=== PATIENT | male | born 1955 | race Caucasian/White ===

== ENCOUNTER 2022-05-12 09:14 | Outpatient (CLI) | payer BC, SELFPAY ==
[2022-05-12 14:39] LABS: Cholesterol* 166 mg/dL (90-199)
[2022-05-12 14:40] LABS: HDL Cholesterol* 45 mg/dL (>=40); LDL Cholesterol Calculated 89 mg/dL (<100); Triglycerides* 159 mg/dL (40-149)
[2022-05-12 14:48] LABS: Vitamin D 25 Hydroxy* 48 ng/mL (30-80)
== END 2022-05-12 09:15 | disposition home or self-care (01) ==
PROVIDERS: PCP Family Medicine; Visit Provider Family Medicine
DX: Z00.00 Encounter for general adult medical examination without abnormal findings (principal); E78.5 Hyperlipidemia, unspecified; R73.03 Prediabetes; E66.9 Obesity, unspecified
CPT/HCPCS: 80061; 82306

== ENCOUNTER 2022-06-29 15:36 | Outpatient (CLI) | payer BC, SELFPAY ==
--- NOTE | 2022-06-29 16:00 | CRLHL7_ITS ---
For Patients: As a result of the Century Cures Act, medical imaging exams and procedure reports are released immediately into your electronic medical record. You may view this report before your referring provider. If you have questions, please contact your health care provider. CLINICAL HISTORY: HEMATURIA, PASSING CLOTS COMPARISON: none TECHNIQUE: Diehl scale and color Doppler images were acquired of the kidneys and urinary bladder. FINDINGS: Irregularly marginated hypoechoic masslike area medial left kidney upper pole measures 2.5 x 2.5 x 2.1 cm. Similar lesion within the right kidney midportion measuring 3.4 x 2.5 x 3.0 cm. No hydronephrosis. Renal cortex is normal in thickness. Right kidney measures 14.0 cm in length and left kidney measures 12.5 cm in length. There appears to be some Doppler flow to the previously described lesions. There is a nodular structure associated with the right posterior lateral bladder wall measuring 1.1 x 1.0 x 1.2 cm. The prevoid bladder volume is 59 cc. IMPRESSION: Hypoechoic solid masses within each kidney measuring 2.5 cm on the left and 3.4 cm on the right along with a nodular mass associated with the right posterolateral bladder wall measuring 1.1 cm, concerning for malignancies. CT urogram recommended. Dictated by Denilson Goodman MD @ 06/30/2022 10:15:12 AM (Electronically Signed)
== END 2022-06-29 15:37 | disposition home or self-care (01) ==
LOC: US 15:37
PROVIDERS: PCP Family Medicine; Visit Provider Family Medicine
DX: R31.9 Hematuria, unspecified (principal); N28.89 Other specified disorders of kidney and ureter
CPT/HCPCS: 76770

== ENCOUNTER 2022-11-22 13:13 | Emergency (ER) | payer BC, SELFPAY ==
[2022-11-22] VITALS (10 sets, daily range): BP systolic 155–176; BP diastolic 79–83; PULSE 88–102; RESP 24; TEMP 36; O2SAT 95–97; BMI 31.2
[2022-11-22 14:27] LABS: PCR FLU A Negative PCR FLU A (Negative); PCR FLU B Negative PCR FLU B (Negative); PCR RSV Negative PCR RSV (Negative)
[2022-11-22 14:29] LABS: SARS PCR* Negative SARS-CoV-2 (Negative)
--- NOTE | 2022-11-22 14:41 | CRLHL7_ITS ---
For Patients: As a result of the Century Cures Act, medical imaging exams and procedure reports are released immediately into your electronic medical record. You may view this report before your referring provider. If you have questions, please contact your health care provider. INDICATION: Cough. TECHNIQUE: Chest 2 views. COMPARISON: None. FINDINGS: Cardiovascular and mediastinum: Heart size and vasculature are normal in caliber and appearance. Lungs and pleural spaces: Hyperinflated lungs which could suggest emphysema appear lungs are clear. No sign of infiltrate or mass. No sign of pleural effusion. No pneumothorax. Bones and soft tissues: No significant findings. IMPRESSION: Hyperinflated lungs which could suggest emphysema no acute or significant findings. Dictated by Erlin Figueroa MD @ 11/22/2022 3:48:47 PM (Electronically Signed)
--- NOTE | 2022-11-22 15:05 | ED_ITS ---
HPI - Arrhythmia/Palpitations General Date Seen: 11/22/22 Chief Complaint: Arrhythmia/Palpitations Stated Complaint: Irregular Heartbeat Time Seen by Provider: 11/22/22 14:23 Source: patient Mode of arrival: ambulatory Limitations: no limitations History of Present Illness HPI narrative: Patient is a 67-year-old gentleman who presents here for evaluation of palpitations, he has been feeling unwell for the last 4-5 days, he tripped beats this to starting a new blood pressure medication for the last month. He had previously been on amlodipine, but this really caused his knees to swell and pain. He has noted last night that he had extra beats, he is not having no chest pain, just overall feels unwell. Feels worse when he is laying not doing anything, better when he is up moving around. Denies a fevers chills, cough, feeling that he is going to pass out, nausea vomiting diarrhea. Has no previous heart history, but has have a history of hypertension, hyperlipidemia, early diabetes, and stage IV prostate cancer. MD complaint: skipped beats Onset (ago): day(s) Duration: constant Severity: mild Context: occurred during rest Associated symptoms: denies other symptoms Related Data Home Medications Medication Instructions Recorded Confirmed enzalutamide 40 mg capsule 40 mg PO QDAY 05/03/22 11/22/22 leuprolide 7.5 mg (Ped) 7.5 mg IM Q4W 05/03/22 11/22/22 intramuscular kit (Lupron Depot-Ped) melatonin 3 mg capsule 3 mg PO QDAY 05/03/22 11/22/22 Previous Rx's Medication Instructions Recorded fluorouracil 5 % topical cream 1 applic topical .once weekly #40 05/25/22 grams atorvastatin 20 mg tablet 20 mg PO QDAY #90 tabs 07/29/22 doxazosin 4 mg tablet 4 mg PO QPM #90 tabs 09/15/22 metformin 500 mg tablet,extended 500 mg PO DAILY #90 tabs 09/15/22 release 24 hr lisinopril 10 mg tablet 10 mg PO QDAY #30 tabs 10/31/22 Allergies Allergy/AdvReac Type Severity Reaction Status Date / Time iodine Allergy Severe Anaphylaxis Verified 11/22/22 13:16 diatrizoate meglumine Allergy Verified 11/22/22 13:16 xray dye Allergy Severe went into Uncoded 10/12/22 15:23 shock/anaphylaxis Review of Systems Status of ROS: Reports: 10 or more systems reviewed and unremarkable except as noted in History and below [facility] Medical History Carbuncle of hip Dermoid cyst of lower extremity History of hematuria HTN (hypertension) Family History Father Lung cancer Social History Narrative: Has 2 children- A daughter who is alive (lives in [place]); one child was struck by a motor vehicle on [place] and Smoker- 1.5 ppd Smoking Status: Current every day smoker What tobacco products do you use: cigarettes Smoking packs per day: 1.5 Smoking cigarettes per day: 30.0 Do you use any of these nicotine containing products: None Second hand tobacco smoke exposure: Yes How often do you have a drink containing alcohol: never AUDIT-C Alcohol total score: 0 Non-prescribed substance use: denies use Little interest or pleasure in doing things: not at all Feeling down, depressed, or hopeless: not at all service: No Exam Narrative: Exam Narrative: Patient is speaking normally, no problem with slurring words, oriented x3. Head eyes ears nose and throat exam show equal pupils, no scleral icterus, extraocular muscles are normal, no facial droop, speech is normal, trachea normal and midline. Thyroid normal midline palpable not enlarged. Chest shows symmetrical rise bilaterally, normal auscultation with no wheezes, no increased work of breathing, no overt bruising or lesions seen, no tenderness is noted on auscultation. Heart sounds normal with no S3-S4 no murmurs clicks or gallops. Abdomen shows no obvious masses or hepatosplenomegaly, no organomegaly, bowel sounds are normal in all quadrants. No tenderness is noted also in all quadrants. Upper and lower extremities show normal power, normal range of motion, pulses are normal, sensations normal, fine motor movements are normal, pelvis is stable to rocking. Cervical spine shows normal range of motion, and palpably not tender. Thoracic spine shows normal range of motion, and palpably not tender, lumbar spine shows no tenderness to palpation percussion and is otherwise normal range of motion. Skin shows no rashes, petechiae or eccymosis. Const: Vital Signs, click to edit/add: Vital Signs - 24 hr 11/22/22 13:19 11/22/22 14:16 11/22/22 14:17 Temperature 96.8 F L Pulse Rate 91 93 Pulse Rate [Pulse Oximeter] 102 H Respiratory Rate 24 Blood Pressure 176/83 H Blood Pressure [Ri ght Upper Arm] 155/79 H Pulse Oximetry 97 97 96 Oxygen Delivery Me thod Room Air 11/22/22 14:30 11/22/22 14:31 11/22/22 14:45 Temperature Pulse Rate 91 95 89 Pulse Rate [Pulse Oximeter] Respiratory Rate Blood Pressure 157/79 H Blood Pressure [Ri ght Upper Arm] Pulse Oximetry 95 95 96 Oxygen Delivery Me thod 11/22/22 15:00 11/22/22 15:01 Temperature Pulse Rate 88 88 Pulse Rate [Pulse Oximeter] Respiratory Rate Blood Pressure 156/83 H Blood Pressure [Ri ght Upper Arm] Pulse Oximetry 95 95 Oxygen Delivery Me thod Course Course Hospital Course: I had a long talk with Mr. Boyer, I strongly recommend smoking cessation, also recommend a further workup for shortness of breath. I think this can be done as an outpatient, and would have liked to have arranged so that Dr. Wilburn could just review the test results, but he (patient) does not want to have this done. I can tell that he really trust his primary care physician wants to get his opinion. I think today were fine with not starting him on antihypertensive medication allow the current medication washout of his system, and thenstarting him on a new medication, his sister takes losartan to good effect in this might be a reasonable choice. I will leave this up to his doctor. I would suggest a stress echo, and a Lexiscan as an outpatient, and then return here if worsening chest pain shortness of breath, starting on aspirin 81 mg also would be appropriate. Strongly consider smoking cessation. Vital Signs Vital signs: Initial Vital Signs Temperature 96.8 F L 11/22/22 13:19 Temperature Source Temporal Artery Scan 11/22/22 13:19 Pulse Rate 102 H 11/22/22 13:19 Pulse Rhythm 11/22/22 13:19 Pulse Strength 3+ Normal 11/22/22 13:19 Respiratory Rate 24 11/22/22 13:19 Blood Pressure 155/79 H 11/22/22 13:19 Blood Pressure Mean 104 11/22/22 13:19 Blood Pressure Position Sitting 11/22/22 13:19 Pulse Oximetry 97 11/22/22 13:19 Oxygen Delivery Method 11/22/22 13:19 Vital Signs Temperature 96.8 F L 11/22/22 13:19 Pulse Rate 102 H 11/22/22 13:19 Respiratory Rate 24 11/22/22 13:19 Blood Pressure 155/79 H 11/22/22 13:19 Pulse Oximetry 97 11/22/22 13:19 Oxygen Delivery Method 11/22/22 13:19 Temperature 96.8 F L 11/22/22 13:19 Pulse Rate 88 11/22/22 15:01 Respiratory Rate 11/22/22 13:19 Blood Pressure 156/83 H 11/22/22 15:01 Pulse Oximetry 95 11/22/22 15:01 Oxygen Delivery Method 11/22/22 13:19 MDM - Arrhythmia/Palpitations MDM Narrative Medical decision making narrative: Differential diagnosis includes but is not limited to psychosocial stress, thyroid abnormalities, CHF, SVT, atrial fibrillation, ventricular tachycardia and ventricular fibrillation. This includes the life-threatening complications of heart failure, V-tach, and VFib Medical Records Attestation: I reviewed the patient's medical records. Lab Data Attestation: I reviewed the patient's lab results. Labs: Lab Results 11/22/22 11/22/22 11/22/22 Range/Units 13:24 14:41 15:09 WBC 7.43 (4.50-11.00) K/uL RBC 5.14 (4.30-5.90) m/uL Hgb 15.5 (13.5-17.5) gm/dL Hct 45.8 (37.0-53.0) % MCV 89 (80-100) fL MCH 30 (26-34) pg MCHC 34 (32-36) gm/dL RDW Coeff of Fawn 12.3 (11.5-15.5) % Plt Count 244 (140-440) K/uL Neut % (Auto) 74.3 H (42.0-72.0) % Lymph % (Auto) 15.1 L (20-44) % [place]morton % (Auto) 9.2 (0.0-11.0) % Eos % (Auto) 0.8 (0.0-7.0) % Baso % (Auto) 0.3 (0.0-3.0) % Neut # (Auto) 5.50 (1.7-7.0) K/uL Lymph # (Auto) 1.10 (0.90-2.90) K/uL Th[place]morton # (Auto) 0.70 (0.00-0.90) K/UL Eos # (Auto) 0.06 (0.00-0.50) K/uL Baso # (Auto) 0.02 (0.00-0.30) K/uL INR (0.91-1.10) APTT (23-33) Seconds D-Dimer Quant (PE/DVT) (0.00-0.50) ug/ml Sodium (135-149) mmol/L Potassium (3.6-5.1) mmol/L Chloride (96-114) mmol/L Carbon Dioxide (20-32) mmol/L BUN (7-30) mg/dL Creatinine (0.5-1.5) mg/dL Estimated Creat Clear Estimated GFR ml/min Glucose (60-115) mg/dL Calcium (8.4-10.6) mg/dL C-Reactive Protein (0.5-1.0) mg/dL NT-Pro-B Natriuret Pep pg/mL SARS-CoV-2 (PCR) Negative SARS-CoV-2 (Negative) Influenza Type A (PCR) Negative PCR FLU A (Negative) Influenza Type B (PCR) Negative PCR FLU B (Negative) RSV (PCR) Negative PCR RSV (Negative) POC Troponin I 0.00 L (0.01-0.04) ng/ml 11/22/22 11/22/22 Range/Units 15:09 15:09 WBC (4.50-11.00) K/uL RBC (4.30-5.90) m/uL Hgb (13.5-17.5) gm/dL Hct (37.0-53.0) % MCV (80-100) fL MCH (26-34) pg MCHC (32-36) gm/dL RDW Coeff of Fawn (11.5-15.5) % Plt Count (140-440) K/uL Neut % (Auto) (42.0-72.0) % Lymph % (Auto) (20-44) % Th[place]morton % (Auto) (0.0-11.0) % Eos % (Auto) (0.0-7.0) % Baso % (Auto) (0.0-3.0) % Neut # (Auto) (1.7-7.0) K/uL Lymph # (Auto) (0.90-2.90) K/uL Th[place]morton # (Auto) (0.00-0.90) K/UL Eos # (Auto) (0.00-0.50) K/uL Baso # (Auto) (0.00-0.30) K/uL INR 0.94 (0.91-1.10) APTT 28 (23-33) Seconds D-Dimer Quant (PE/DVT) 0.37 (0.00-0.50) ug/ml Sodium 142 (135-149) mmol/L Potassium 4.6 (3.6-5.1) mmol/L Chloride 108 (96-114) mmol/L Carbon Dioxide 24 (20-32) mmol/L BUN 12 (7-30) mg/dL Creatinine 0.6 (0.5-1.5) mg/dL Estimated Creat Clear 88.02 Estimated GFR 107 ml/min Glucose 115 (60-115) mg/dL Calcium 9.2 (8.4-10.6) mg/dL C-Reactive Protein 0.7 (0.5-1.0) mg/dL NT-Pro-B Natriuret Pep < 20 pg/mL SARS-CoV-2 (PCR) (Negative) Influenza Type A (PCR) (Negative) Influenza Type B (PCR) (Negative) RSV (PCR) (Negative) POC Troponin I (0.01-0.04) ng/ml Imaging Data Chest x-ray: Attestation: I have reviewed the pertinent imaging results. My impression: hyperiNflation Radiologist's impression: atient: RADHA BOYER Facility:?[facility] Patient ID:?[id number] Site Patient ID:?[id number]. Site :?[id number] Study:?XRay Chest 2 VIEWS-11/22/2022 3:35:42 PM Ordering Physician:?Seper Joseph Final Report: INDICATION: Cough. TECHNIQUE: Chest 2 views. COMPARISON: None. FINDINGS: Cardiovascular and mediastinum: Heart size and vasculature are normal in caliber and appearance. Lungs and pleural spaces: Hyperinflated lungs which could suggest emphysema appear lungs are clear. No sign of infiltrate or mass. No sign of pleural effusion. No pneumothorax. Bones and soft tissues: No significant findings. IMPRESSION: Hyperinflated lungs which could suggest emphysema no acute or significant findings. Dictated by Erlin Figueroa MD @ 11/22/2022 3:48:47 PM (Electronic Signature) ECG Data Attestation: I personally reviewed and interpreted this ECG as follows: ECG interpretation time: 15:07 Interpretation: EKG shows normal sinus rhythm with a ventricular rate of 100, PACs are noted, no acute changes, QRS QT and AL intervals are normal Assessment: Normal sinus rhythm with occasional PACs. Discharge Plan Discharge Clinical Impression: Shortness of breath, PAC (premature atrial contraction), Emphysema lung, Tobacco use disorder, Hypertension Patient Disposition: Home, Self-Care Condition: Stable Instructions: How to Stop Smoking (ED), Emphysema (DC), Hypertension (ED), Premature Atrial Contractions (ED), Chronic Lung Disease and Infection Prevention (ED), Pulmonary Rehabilitation (DC), How to Quit Using Smokeless Tobacco (ED), Cardiac Stress Test (DC), Nuclear Stress Test (DC), Stress Echocardiogram (DC) Additional Instructions: Follow-up with Dr. Marcelo on Monday, we will let the blood pressure medication washout a you and then he can consider restarting you on the new medication, new tests here were all normal, with exception of there is emphysema seen on her chest x-ray. I highly suggest smoking cessation and we talked about this. I recommend that u start 81 mg aspirin I do recommend that Dr. Marcelo try to convince you to get a stress test, and potentially an echocardiogram of your heart. This shortness of breath I feel could be multifactorial both smoking use which would make a huge improvement in her breathing. Return here if chest pain, worsening shortness of breath, leg swelling, or other symptoms. Prescriptions: No Action atorvastatin 20 mg tablet 20 mg PO QDAY Qty: 90 3RF melatonin 3 mg capsule 3 mg PO QDAY Lupron Depot-Ped 7.5 mg (Ped) kit 7.5 mg IM Q4W enzalutamide 40 mg capsule 40 mg PO QDAY fluorouracil 5 % cream 1 applic topical .once weekly Qty: 40 0RF metformin 500 mg tablet extended release 24 hr 500 mg PO DAILY Qty: 90 0RF doxazosin 4 mg tablet 4 mg PO QPM Qty: 90 0RF lisinopril 10 mg tablet 10 mg PO QDAY Qty: 30 1RF Rx Instructions: Take 1 tablet (10mg) daily. Follow Up/Referrals: Davian Martinez MD [Primary Care Provider] - Stand Alone Forms: [facility]
[2022-11-22 15:20] LABS: Basophils Absolute Auto 0.02 K/uL (0.00-0.30); Basophils Percent Auto 0.3 % (0.0-3.0); Eosinophils Absolute Auto 0.06 K/uL (0.00-0.50); Eosinophils Percent Auto 0.8 % (0.0-7.0); Hematocrit 45.8 % (37.0-53.0); Hemoglobin* 15.5 gm/dL (13.5-17.5); Immature Granulocytes Abs Auto 0.02 K/uL (0.00-0.30); Immature Granulocytes Pct Auto 0.3 %; Lymphocytes Percent Auto 15.1 % (20-44); Mean Corpuscular HGB Conc 34 gm/dL (32-36); Mean Corpuscular Hemoglobin 30 pg (26-34); Mean Corpuscular Volume 89 fL (80-100); Monocytes Percent Auto 9.2 % (0.0-11.0); Neutrophils Percent Auto 74.3 % (42.0-72.0); Platelet Count* 244 K/uL (140-440); RDW Coefficient of Variation % 12.3 % (11.5-15.5); Red Blood Count 5.14 m/uL (4.30-5.90); White Blood Count* 7.43 K/uL (4.50-11.00)
[2022-11-22 15:33] LABS: Slide Review Reflex No
[2022-11-22 15:36] LABS: Chloride* 108 mmol/L (96-114); INR 0.94 (0.91-1.10); Potassium* 4.6 mmol/L (3.6-5.1); Prothrombin Time 13.1 Seconds; Sodium* 142 mmol/L (135-149)
[2022-11-22 15:37] LABS: Partial Thromboplastin Time* 28 Seconds (23-33)
[2022-11-22 15:39] LABS: Creatinine* 0.6 mg/dL (0.5-1.5); Est. Creatinine Clearance* 88.02; Estimated Glomerular Filt Rate 107 ml/min
[2022-11-22 15:40] LABS: Blood Urea Nitrogen* 12 mg/dL (7-30); Calcium* 9.2 mg/dL (8.4-10.6); Carbon Dioxide* 24 mmol/L (20-32); Glucose* 115 mg/dL (60-115)
[2022-11-22 15:43] LABS: C Reactive Protein* 0.7 mg/dL (0.5-1.0)
[2022-11-22 15:44] LABS: D Dimer Quantitative* 0.37 ug/ml (0.00-0.50)
[2022-11-22 15:53] LABS: NT Pro B Type NatriureticPept* < 20 pg/mL
[2022-11-22] MEDS: ASPIRIN 81 MG TABLET EC PO (16:44)
== END 2022-11-22 16:55 | disposition home or self-care (01) ==
PROVIDERS: Emergency Provider Family Medicine; PCP Family Medicine
DX: I49.1 Atrial premature depolarization (principal); J43.9 Emphysema, unspecified; F17.210 Nicotine dependence, cigarettes, uncomplicated; I10 Essential (primary) hypertension
CPT/HCPCS: 36415; 71046; 80048; 83880; 84484; 85025; 85379; 85610; 85730; 86140; 87502; 87634; 87635; 93005; 99284; 99285; A9270

== ENCOUNTER 2023-03-21 08:45 | Outpatient (CLI) | payer BC, SELFPAY | END 2023-03-21 08:46 | disposition home or self-care (01) | LOC: NFLDREF 03-22 07:57 | PROVIDERS: PCP Family Medicine; Referring Provider Family Medicine; Visit Provider Family Medicine | DX: E78.5 Hyperlipidemia, unspecified (principal); R73.03 Prediabetes; I10 Essential (primary) hypertension | CPT/HCPCS: 80053; 80061 ==

== ENCOUNTER 2024-04-01 13:44 | Outpatient (CLI) | payer BC, SELFPAY ==
--- OUTSIDE RECORDS SUMMARY | 2024-04-01 13:49 | XMS_ITS | Clinical Summary ---
Author Organization [employer] [facility] Address [place], [place] [address] Care Team Providers Care Nuclear Radiation Engineer Name Role Phone [facility] [place] Unavailable [phone] Pcp, No Primary Care Provider Unavailabl e Allergies Active Allergy Reactions Criticality Noted Date Comments Diatrizoate Allergen Anaphylaxis High 11/22/2015 Iodinated Contrast Media Anaphylaxis High 02/20/2018 Medications Medication Sig Dispensed Refills Start Date End Date Status docusate (COLACE) 100 mg capsuleIndications: Benign prostatic hyperplasia with lower urinary tract symptoms, symptom details unspecified Take 1 capsule by mouth 2 times daily. 20 capsule 04/27/2018 Active cyclobenzaprine (FLEXERIL) 10 mg tablet Take 10 mg by mouth 2 times daily. 11/11/2021 Active metFORMIN (GLUCOPHAGE XR) 500 mg Extended-Release tablet TAKE 1 TABLET BY MOUTH EVERY DAY PLEASE SCHEDULE APPT. 12/08/2021 Active Xtandi 40 mg capsule 01/28/2022 Active atorvastatin (LIPITOR) 10 mg tablet Take 10 mg by mouth at bedtime. 05/14/2022 Active gabapentin (NEURONTIN) 100 mg capsule TAKE 1 CAPSULE BY MOUTH THREE TIMES A DAY 05/23/2022 Active fluorouracil 5% topical (EFUDEX) 5 % cream APPLY TOPICALLY TO AFFECTED AREA ONCE WEEKLY 05/25/2022 Active doxazosin (CARDURA) 4 mg tablet Take 4 mg by mouth. 05/05/2022 Acti ve leuprolide, 1 month, (Lupron Depot) 7.5 mg intramuscular syringe Inject 1 mL (7.5 mg) intramuscular one time for 1 dose. 1 mL 06/17/2022 Active telmisartan (MICARDIS) 20 mg tablet Take 20 mg by mouth. 06/19/2023 Active Active Problems Problem Noted Date Diagnosed Date BPH (benign prostatic hyperplasia) 04/27/2018 Malignant tumor of prostate 03/27/2018 Overview: C61 : Malignant tumor of prostate Encounters Date Type Department Care Team Description 01/25/2024 Lab Requisition [facility] [phone] Daryl Keys MD from Last 3 Months Social History Tobacco Use Types Packs/Day Years Used Date Smoking Tobacco: Every Day Cigarettes 1.5 40 Smokeless Tobacco: Never Tobacco Cessation:Ready to Q uit: Not Asked; Counseling Given: Not Answered Alcohol Use Standard Drinks/Week Comments No 0 (1 standard drink = 0.6 oz pur e alcohol) Sex and Gender Information Value Date Recorded Sex Assigned at Not on file Gender Identity Not on file Sexual Orientation Not on file Obstetrics History Last Filed Vital Signs Vital Sign Reading Time Taken Comments Blood Pressure 142/68 09/12/2023 1:59 PM RAILROAD YARD WORKER Pulse 85 09/12/2023 1:59 PM RAILROAD YARD WORKER Temperature 36.3 ??C (97.3 ??F) 09/12/2023 1:59 PM CS T Respiratory Rate 16 09/12/2023 1:59 PM RAILROAD YARD WORKER Oxygen Saturation 97% 09/12/2023 1:59 PM RAILROAD YARD WORKER Inhaled Oxygen Concentration - - Weight 111.1 kg (245 lb) 09/12/2023 1:59 PM RAILROAD YARD WORKER Height 160 cm (5' 3) 06/17/2022 4:32 PM CDT Body Mass Index 43.4 06/17/2022 4:32 PM CDT Plan of Treatment Health Maintenance Due Date Last Done Comments Tdap 1968 Depression screening for age 12+ 1969 Hepatitis C screening for age 18-79 1975 Tetanus booster 1977 Colonoscopy through age 75 2002 Lipids for age 45-75 2002 Zoster (shingles) series for age 50+ (1 of 2) 2007 AAA screening age 65-74 2022 Pneumococcal series for age 65+ (1 of 1 - PCV) 2022 COVID-19 vaccine series ( - 2022-24 season) 2023 01/23/2021, 01/02/2021 BMI (ht and wt on same day) for age 18+ 06/17/2023 0 06/17/2022 Influenza for age 65+ 06/09/2024 Procedures Procedure Name Priority Date/Time Associated Diagnosis Comments LAB TRACKING EVENT Routine 01/25/2024 10 :50 AM CDT PATH TISSUE EXAM Routine 01/25/2024 10:5 0 AM CDT from Last 3 Months Results * LAB TRACKING EVENT (01/25/2024 10:50 AM CDT) Other (Other) Client Collect / Unknown 01/25/2024 10:50 AM CDT 01/25/2024 3:41 PM CDT Daryl Keys MD LAB BILL ONLY [facility] [address] [place] [address], * PATH TISSUE EXAM (01/25/2024 10:50 AM CDT) Case Report Pathology Report ?Case: [id number] ? Authorizing Provider: ??Daryl Keys MD ?? Collected: ? 01/25/2024 1050 ? Ordering Location: ? [facility] ?Received: ?01/25/2024 1842 ? Pathologist: ? Curry Martinez MD ? Specimen: ?Left Ear ? 01/29/2024 10:35 AM CDT [facility] [place] [facility] Final Diagnosis A) SKIN, LEFT PREAURICULAR REGION, BIOPSY: 1. Dilated pore (of Jesse) 2. No evidence of malignancy 01/29/2024 10:35 AM CDT [facility] [place] [facility] Clinical Information Irritated dilated pore vs other. 01/29/2024 10:35 AM T [facility] [place] [facility] Gross Description A) Received in formalin, labeled with the patient's name and left preauricular region, is a 1.0 x 0.6 x 0.2 cm aggregate of fragmented heath-brown friable material and disrupted heath skin. ??The specimen is entirely submitted in 1 cassette. EKW 01/25/2024 01/29/2024 10:[address] [facility] Microscopic Description The final diagnosis is based on microscopic examination of appropriate sections of all specimens. A) Sections demonstrate a dilated, keratin filled hair follicle. The squamous epithelium lining the follicle is acanthotic and shows irregular budding. 01/29/2024 10:35 AM CDT [facility] [place] [facility] Additional Information Interpreted at [facility] - [address], [place] [address] 01/29/2024 10:[address] [facility] Other (Left Ear) 01/25/2024 10:50 AM CDT 01/25/2024 6:42 PM CDT Daryl Keys MD PATHOLOGY/CYTOLOG Y [facility] [address] [place] [address], [place] from Last 3 Months Advance Directives * Full Code (Latest Code Status on File) Date Activated Date Inactivated Comments 04/26/2018 11:07 AM 04/30/2018 5:14 PM * Full Code Date Activated Date Inactivated Comments 04/12/2018 5:59 AM 04/12/2018 4:06 PM Care Teams Nuclear Radiation Engineer Relationship Specialty Start Date End Date Pcp, No . PCP - General 02/08/22 [facility] [place] 04/24/18
--- OUTSIDE RECORDS SUMMARY | 2024-04-01 13:49 | XMS_ITS | Referral Summary ---
Author Organization [facility] Address [address] [place] [address] Care Team Providers Care Director Of Emergency Nursing Name Role Phone Pratibha Guallpa Tracie WORK COUNSELOR MANAGER BUSINESS INFORMATION Primary Care Pro vider Unavailable Allergies Active Allergy Reactions Criticality Noted Date Comments Contrast Dye Anaphylaxis High 11/22/2015 Medications Medication Sig Dispensed Refills Start Date End Date Status tamsulosin (FLOMAX) 0.4 MG capsuleIndications:Be nign prostatic hyperplasia, unspecified whether lower urinary tract symptoms present Take 1 capsule (0.4 mg) by mouth daily 30 capsule 1 01/29/2018 Active Sulfamethoxazole-Trim ethoprim (BACTRIM PO) Act pramod Active Problems No known active problems Social History Tobacco Use Types Packs/Day Years Used Date Smoking Tobacco: Every Day Cigarettes Smokeless Tobacco: Never Alcohol Use Standard Drinks/Week Comments No 0 (1 standard drink = 0.6 oz pur e alcohol) Sex and Gender Information Value Date Recorded Sex Assigned at Not on file Gender Identity Not on file Sexual Orientation Not on file Last Filed Vital Signs Vital Sign Reading Time Taken Comments Blood Pressure 164/90 04/13/2018 5:36 AM CDT Pulse 82 04/13/2018 5:35 AM CDT Temperature 36.8 ??C (98.2 ??F) 04/13/2018 5:35 AM CD T Respiratory Rate 18 04/13/2018 5:35 AM CDT Oxygen Saturation 96% 04/13/2018 5:36 AM CDT Inhaled Oxygen Concentration - - Weight 109.3 kg (241 lb) 01/29/2018 11:26 AM CDT Height 193 cm (6' 4) 01/29/2018 11:26 AM CDT Body Mass Index 29.34 01/29/2018 11:26 AM CDT Plan of Treatment Not on file Care Teams Director Of Emergency Nursing Relationship Specialty Start Date End Date Pratibha Guallpa APRN MANAGER BUSINESS INFORMATION PCP - General Nurse Practitioner - Gerontology 04/13/18
--- OUTSIDE RECORDS SUMMARY | 2024-04-01 13:49 | XMS_ITS | Clinical Summary ---
[facility] Address [address] [place] [address] Care Team Providers Care Outpatient Therapist Name Role Phone Olivia Carrera MD Primary Care Provider [phone] Source Comments You are receiving this document as you are listed as the primary care provider,follow-up provider, or the patient has been referred to you for consultation.This is in compliance with the Medicare and[facility] EHR Incentive Program,which states Providers who transition their patient to another setting of careor provider of care or refers their patient to another provider of care shouldprovide summary care record for each transition of care or referral. [employer] Allergies Active Allergy Reactions Criticality Noted Date Comments Iodinated Contrast Media Anaphylaxis High 11/22/2015 Medications Medication Sig Dispensed Refills Start Date End Date Status beclomethasone (QVAR) 40 MCG/ACT inhalerIndications: Bronchitis with bronchospasm Inhale 2 Puffs by mouth two times a day. For two weeks. Rinse mouth after use. 7.3 g 0 01/23/2012 Active Additional Information Patient not taking.Reported on 05/16/2019 ALBUterol sulfate hfa (AKA PROAIR,VENTOLIN) 108 (90 BASE) MCG/ACT inhalerIndications: Bronchitis with bronchospasm Inhale by mouth. 2 puffs QID for four days, wean as tolerated. 8.5 g 0 01/23/2012 Active Additional Information Patient not taking.Reported on 05/16/2019 tamsulosin (FLOMAX) 0.4 MG CAPS capsule Take 0.4 mg by mouth daily. Active Leuprolide Acetate (LUPRON DEPOT, 1-MONTH, IM) Active tamsulosin (FLOMAX) 0.4 MG CAPS capsule TAKE 1 TAB BY MOUTH EVERY DAY 90 Capsule 04/17/2020 Active Active Problems Problem Noted Date Diagnosed Date Tobacco use disorder 03/15/2003 Overview: Tobacco Abuse Social History Tobacco Use Types Packs/Day Years Used Date Smoking Tobacco: Every Day Cigarettes Smokeless Tobacco: Never Alcohol Use Standard Drinks/Week Comments Not Asked 0 (1 standard drink = 0.6 oz pur e alcohol) Sex and Gender Information Value Date Recorded Sex Assigned at Not on file Gender Identity Not on file Sexual Orientation Not on file Last Filed Vital Signs Vital Sign Reading Time Taken Comments Blood Pressure 144/80 05/16/2019 7:34 AM CDT Pulse 102 05/16/2019 7:34 AM CDT Temperature 36.7 ??C (98.1 ??F) 01/23/2012 2:20 PM CD T Respiratory Rate 16 05/16/2019 7:34 AM CDT Oxygen Saturation 95% 01/23/2012 2:20 PM CDT Inhaled Oxygen Concentration - - Weight 97.8 kg (215 lb 9.6 oz) 01/23/2012 2:20 P M CDT Height 193.7 cm (6' 4.25) 10/12/2010 1:03 PM CS T Body Mass Index 26.07 10/12/2010 1:03 PM [employer] Plan of Treatment Health Maintenance Due Date Last Done Comments Colon Cancer Screening Plan Due 1955 Hep C Screening (Preventive Services) 1955 PSA Screening Discussion 1955 Pneumococcal 65+ Yrs (1 - PCV) 1963 Adult Preventive Visit 1975 Cholesterol 10/12/2015 10/12/2010, 06/05/2000, 04/03/2000 COVID-19 Vaccine (3 - 2022-2 4 season) 2023 01/23/2021, 01/02/2021 Influenza (Season Ended) 2024 DTaP/Tdap/Td (2 - Tdap) 11/14/2029 11/14/2019 Zoster/Shingles Completed 04/07/2020, 11/14/2019 HepA Aged Out No longer eligi ble based on patient's age to complete this topic HepB Aged Out No longer eligi ble based on patient's age to complete this topic Hib Aged Out No longer eligi ble based on patient's age to complete this topic IPV (Polio) Aged Out No longer eligi ble based on patient's age to complete this topic MCV4 Aged Out No longer eligi ble based on patient's age to complete this topic Procedures Procedure Name Priority Date/Time Associated Diagnosis Comments LIPID PANEL & DIRECT LDL (IF NEEDED) Routine 10/12/2010 1:41 PM [employer] Screening cholesterol level from Last 3 Months or Most Recently Relevant to Health Maintenance Results * (ABNORMAL) LIPID PANEL AND DIRECT LDL(IF NEEDED) (10/12/2010 1:41 PM [employer]) Pathologist [facility] Cholesterol 274(H) 0 - 199 mg/dl [facility] Triglyceride 138 0 - 149 mg/dl [facility] HDL 43 >40 mg/dl [facility] LDL, Calc. 203(H) 0 - 129 mg/dl [facility] Hours Fasting 1 hours [facility] 10/12/2010 1:41 PM [employer] 10/12/2010 1:46 PM [employer] Olivia Carrera MD LAB[email or web address] [facility] [address] [id number] from Last 3 Months or Most Recently Relevant to Health Maintenance Care Teams Outpatient Therapist Relationship Specialty Start Date End Date Olivia Carrera MD [address] [place] [address] PCP - General Family Practice 12/13/10
--- OUTSIDE RECORDS SUMMARY | 2024-04-01 13:49 | XMS_ITS | Clinical Summary ---
Author Organization [facility] Address [address] [place] [id number] Care Team Providers Care Sand Worker Name Role Phone Pratibha Guallpa Tracie ASSISTANT BRAND MANAGER BANKING SPECIALIST Primary Care Pro vider Unavailable Allergies Active [...] of Treatment Not on file Care Teams Sand Worker Relationship Specialty Start Date End Date Pratibha Guallpa APRN BANKING SPECIALIST PCP - General Nurse Practitioner - Gerontology 04/13/18
== END 2024-04-01 13:45 | disposition home or self-care (01) ==
PROVIDERS: PCP Family Medicine; Visit Provider Family Medicine
DX: G62.9 Polyneuropathy, unspecified (principal); I10 Essential (primary) hypertension; E78.2 Mixed hyperlipidemia
CPT/HCPCS: 80048; 80061; 82306; 82607; 83735; 84550; G0103